=== PATIENT | female | born 1990 | race Caucasian/White ===

== ENCOUNTER 2018-11-29 11:40 | Inpatient (IN) | payer SELFPAY ==
[2018-11-29] MEDS ORDERED: LR 1,000 ML IV PRN (12:16)
[2018-11-29] MEDS ORDERED: TERBUTALINE SULFATE 1 MG/ML VIAL IV PRN (12:16)
[2018-11-29] MEDS ORDERED: LIDOCAINE 1% 300 MG/30 ML SDV SC PRN (12:16)
[2018-11-29] MEDS ORDERED: OXYTOCIN/RINGERS LACTATE 1,000 ML IV PRN (12:16)
[2018-11-29] MEDS ORDERED: MISOPROSTOL 200 MCG TAB PO PRN (12:16)
[2018-11-29] MEDS ORDERED: AMMONIA AROMATIC 1 EACH AMP IH PRN (12:16)
[2018-11-29] MEDS ORDERED: IBUPROFEN 600 MG TAB PO PRN ×2 (12:16→16:52)
[2018-11-29] MEDS ORDERED: OLIVE OIL 118 ML BTL MISC PRN (12:16)
[2018-11-29] MEDS ORDERED: EPSOM SALT 454 GM TP PRN (12:16)
--- NOTE | 2018-11-29 12:26 | PDGENHP ---
History and Physical History and Physical: CARE: [facility] HPI: Patient is a 28 yo G 7 P 1 @ 39.3 weeks that presents to L&D with complaints of strong uterine ctx since 1 AM this AM. Denies LOF. EDC: 12/03/18 which is based on LMP: 02/17/18 which is known and consistent with Ultrasound at 7 weeks. Her is complicated by: MTHFR on baby aspirin, Review of Systems: Constitutional: Denies any fever, chills, or fatigue HEENT: denies any visual changes, difficulty swallowing, hearing loss Cardiovascular: Denies any chest pain, palpitations, leg swelling Respiratory: denies any cough, wheezing, or shortness of breathe GI: Denies any nausea, vomiting, diarrhea, constipation : denies any dysuria, urgency, frequency, vaginal bleeding Musculoskeletal: denies any muscle or bone pain Skin: denies any rashes Neuro: denies any headache, seizures, lightheadedness, dizziness, or loss of consciousness Psychiatric: denies any depression, anxiety, or SI/HI thoughts HISTORY: Previous OB history: Hx of recurrent SAB, 11/2016, 7#10 boy, 41 weeks 5 days Social history: Family history: father HTN Past medical history: infertility, Asherman's Past surgical history: colpo, breast augmentation, d&C Medications: PNV, methylfolate Allergies (list reaction): PCN-rash, severe LABS: Rh: O+ ABS: Neg Rubella: Immune HbsAg: NR HIV: NR VDRL: NR 1hr: 70 GC: Neg Chlamydia: Neg Pap: Normal-2015 GBS: neg BMI: (prepreg) 19 PHYSICAL EXAM: Constitutional: WN, A&Ox3 HEENT: normocephalic atraumatic, supple Heart: RRR, no murmur Chest: CTA-B Skin: warm, dry, intact Abdomen: Soft, nontender, gravid SVE: 6/90/-1 Extremities: no edema, negative homans sign Neuro: grossly normal Psych: normal affect assessment: FHT baseline 125, +accels, no decels, moderate variability Contractions: toco q 4-5 min Assessment: 1) 28 yo G 7 P 1 with IUP@ 39.3 weeks 2) active labor 3) GBS neg 4) Cat 1 FHR tracing Plan: 1) Admit to L&D 2) Anticipate
[2018-11-29 13:22] LABS: PLATELET COUNT 220 10^3/uL (150-400)
[2018-11-29] MEDS ORDERED: LIDOCAINE 1% 300 MG/30 ML SDV ONE (13:51)
[2018-11-29] MEDS ORDERED: OLIVE OIL 118 ML BTL MISC ONE (13:51)
[2018-11-29] MEDS ORDERED: MISOPROSTOL 200 MCG TAB ONE (13:52)
[2018-11-29] MEDS ORDERED: AMMONIA AROMATIC 1 EACH AMP IH ONE (13:52)
[2018-11-29] MEDS ORDERED: OXYTOCIN 10 UNIT/ML VIAL ONE (13:52)
[2018-11-29] MEDS ORDERED: DOCUSATE SODIUM 100 MG CAP PO PRN (16:52)
[2018-11-29] MEDS ORDERED: ACETAMINOPHEN 325 MG TAB PO PRN (16:52)
--- NOTE | 2018-11-29 16:59 | OBDEL ---
Info Type: Vaginal Presentation at Delivery: Vertex L&D Analgesia/Anesthesia Type: None GBS+: No - Hospital Course Intrapartum: 11/29/18 16:54 mom progressed well to complete using position change and therapeutic touch for comfort during labor. Indications for Delivery: Spontaneous Labor Vaginal Delivery - Delivery Provider Delivery Physician/CNM: Kylee Leos - Labor and Delivery Onset of Contractions Date: 11/29/18 Onset of Contractions Time: 07:00 Onset of Contractions Type: Spontaneous Rupture of Membranes Date: 11/29/18 Rupture of Membranes Time: 16:20 Rupture of Membranes Type: Spontaneous Amniotic Fluid Color: Clear Dilation Complete Date: 11/29/18 Dilation Complete Time: 16:15 Placenta Delivery Date: 11/29/18 Placenta Delivery Time: 16:36 Total Hours of Labor: 9 Vaginal Sponge Count Correct: Yes Vaginal Needle Count Correct: Yes Vaginal Sweep Performed: Yes Delivery Events: None Delivery Comment: Head delivered over intact perineum. Nuchal cord was loose and reduced. Shoulders and body followed atraumatically with maternal pushing effort. placed on maternal abdomen and cried spontaneously. [place] Data ZENOBIA: 12/03/18 Gestational Age: 39 week(s) and 3 day(s) Bates Delivery Date: 11/29/18 Delivery Time: 16:25 Sex of : Male Score (1 Min): 8 Score (5 Min): 8 ICD10 Worksheet Patient Problems: Problems Problem Status Onset (normal spontaneous vaginal delivery) Acute with 39 completed weeks gestation Acute - ICD10 Problem Qualifiers (1) (normal spontaneous vaginal delivery)
--- NOTE | 2018-11-30 11:14 | OBPP ---
Progress Note Assessment/Plan: Assessment: 28 y/o P2 s/p ppd# 1 Plan: routine pp care plan d/c tomorrow 11/30/18 13:39 Subjective/ Course: 11/30/18 13:39 Patient is doing well this morning. Reports lochia to be light, pain controlled with oral medication, tolerating regular diet and voiding. is going well. Objective: 11/29/18 12:55 Patient ABO/Rh O POSITIVE 11/29/18 12:55 Group B Strep DNA Cancelled 11/29/18 16:00 Temp Pulse Resp BP Pulse Ox 36.5 C 75 20 126/84 H 95 11/30/18 08:00 11/30/18 08:00 11/30/18 08:00 11/30/18 08:00 11/30/18 08:00 Uterine Position/Fundal Height: Umbilicus -1 Uterine Tone: Firm Physical Exam - Physical Exam EENT: PERRL/EOMI Neck: non-tender Respiratory: normal breath sounds Cardiac/Chest: regular rate, rhythm Extremities: normal range of motion Skin: normal color, warm/dry Neuro/Psych: no motor/sensory deficits, alert, normal mood/affect, oriented x 3
[2018-12-01 08:32] VITALS: BP 120/79
--- NOTE | 2018-12-01 09:43 | OBGCSDC ---
General Delivery Information - General Info : 7 Para: 2 Abortions: 5 Type: Vaginal L&D Analgesia/Anesthesia Type: None Admission Date: 11/29/18 Labs: Patient ABO/Rh O POSITIVE 11/29/18 12:55 Hct 40.0 % (38.0-47.0) 11/29/18 12:55 Group B Strep DNA Cancelled 11/29/18 16:00 - Hospital Course Intrapartum: 11/29/18 16:54 mom progressed well to complete using position change and therapeutic touch for comfort during labor. : 11/30/18 13:39 Patient is doing well this morning. Reports lochia to be light, pain controlled with oral medication, tolerating regular diet and voiding. is going well. 12/01/18 09:41 S) Pt doing well, reports min pain and bleeding. she is ambulating and voiding without difficulty. She is . She desires discharge home today. O) VSS, afebrile constitutional: WNWF, A&Ox3 HEENT: normocephalic, atraumatic, supple Heart: RRR, No murmur Chest: CTA-B Abdomen: Soft, nontender Uterus: Firm at U-2 Lochia: Minimal rubra Perineum: Intact, healing well Extremities: Trace edema, and negative Pamela's sign Neuro: Grossly normal A) 28 year-old P2 S/P PPD#2 P) Discharge home today Continue Pelvic rest x6wks Discussed danger signs (infection, preeclampsia, depression, heavy bleeding, etc) RTO in 2,4/6 weeks Vaginal - Delivery Provider Delivery Physician/CNM: Kylee Leos - Diagnosis Labor: Spontaneous Rupture of Membranes Type: Spontaneous Amniotic Fluid Color: Clear Delivery Events: None [place] Data ZENOBIA: 12/03/18 Gestational Age: 39 week(s) and 5 day(s) Bates Delivery Date: 11/29/18 Delivery Time: 16:25 Sex of Infant: Male Weight (gm): 3672 g Score (1 Min): 8 Score (5 Min): 8 Discharge Information - Discharge Information Condition: Good Instruction/Follow Up: Two Weeks, Four Weeks, Six Weeks
== END 2018-12-01 10:54 | disposition home or self-care (01) | DRG 807 ==
LOC: FLD 11:40 → FOB 20:43
PROVIDERS: ADMIT Advanced Practice Midwife; ATTEND Advanced Practice Midwife
PROC: 10E0XZZ Delivery of Products of Conception, External Approach (ICD-10-PCS; principal; 2018-11-29)
DX: O69.81X0 Labor and delivery complicated by cord around neck, without compression, not applicable or unspecified (principal); Z79.82 Long term (current) use of aspirin; Z3A.39 39 weeks gestation of pregnancy; Z37.0 Single live birth
CPT/HCPCS: J2590